=== PATIENT | female | born 1945 | race Caucasian/White ===

== ENCOUNTER 2016-06-17 10:46 | Day surgery (SDC) | payer MEDICARE ==
[2016-06-11 10:35] VITALS: BP 131/73
[~2016-06-17] VITALS: Ht 167.6 cm; Wt 59.0 kg
[~2016-06-17 10:46] MED LIST: BONE PO; BUPIVACAINE/PF-EPI 0.5% 1:200K ONE; CHOL500015 PO; LIDOCAINE/PF 1%-EPI 1:200K, 30ML ONE; MELA3TAB PO; TRAM50TA2 PO; [UNRECOGNIZED DRUG - OTHER] PO; [UNRECOGNIZED DRUG - OTHER] PO
[2016-06-17] MEDS ORDERED: FENTANYL PF 250 MCG/5ML ONE (11:11)
[2016-06-17] MEDS ORDERED: LACTATED RINGERS 1,000 ML IV SCH (11:15)
[2016-06-17] MEDS ORDERED: LIDOCAINE 1%, 2ML SQ PRN (11:30)
[2016-06-17] MEDS ORDERED: ACETAMINOPHEN 325 MG TABLET PO PRN (11:30)
[2016-06-17] MEDS ORDERED: HYDROmorphone 1 MG/ML, 1ML IV PRN (11:30)
[2016-06-17] MEDS ORDERED: ONDANSETRON 2MG/ML, 2ML IVPush PRN (11:30)
[2016-06-17] MEDS ORDERED: PROMETHAZINE 25 MG/ML, 1ML IV PRN (11:30)
[2016-06-17] MEDS ORDERED: HYDROcodone/APAP 7.5-325MG/15ML UDC PO PRN (11:30)
[2016-06-17] MEDS ORDERED: OMNIPAQUE 180 MG/ML, 20ML VIAL ONE (11:30)
[2016-06-17] MEDS ORDERED: FENTANYL PF 100 MCG/2ML IV PRN (11:30)
[2016-06-17] MEDS ORDERED: OXYcodone 5 MG/5 ML ORAL.SOL UDC PO PRN (11:30)
[2016-06-17] MEDS ORDERED: ONDANSETRON 2MG/ML, 2ML ONE (11:34)
[2016-06-17] MEDS ORDERED: ROCURONIUM 10 MG/ML ONE (11:34)
[2016-06-17] MEDS ORDERED: GLYCOPYRROLATE 0.2MG/1ML ONE (11:34)
[2016-06-17] MEDS ORDERED: CEFAZOLIN 1,000 MG ONE (11:34)
[2016-06-17] MEDS ORDERED: NEOSTIGMINE 1 MG/ML, 10ML ONE (11:34)
[2016-06-17] MEDS ORDERED: DEXAMETHASONE 4 MG/ML, 1ML ONE (11:34)
[2016-06-17] MEDS ORDERED: PHENYLEPHRINE 10 MG/ML ONE (11:34)
[2016-06-17] MEDS ORDERED: PROPOFOL 10 MG/ML, 20ML ONE (11:34)
[2016-06-17] MEDS ORDERED: SUCCINYLCHOLINE 20 MG/ML, 10ML ONE (11:34)
[2016-06-17] MEDS ORDERED: OMNIPAQUE 180 MG/ML, 20ML VIAL IT ONE (12:01)
== END 2016-06-17 14:40 | disposition home or self-care (01) ==
LOC: OUT 10:46
PROVIDERS: ATTEND Orthopaedic Surgery Orthopaedic Surgery of the Spine
DX: M80.88XA Other osteoporosis with current pathological fracture, vertebra(e), initial encounter for fracture (principal); M54.5 Low back pain; M40.204 Unspecified kyphosis, thoracic region; Z72.89 Other problems related to lifestyle
CPT/HCPCS: 22513; 72072; 88304; 88311; C1713; J0330; J0690; J1100; J2370; J2405; J2704; J2710; J3010; J3490; J7120; Q9965

== ENCOUNTER 2018-09-14 08:01 | Outpatient (CLI) | payer MEDICARE, MEDICAID ==
[~2018-09-14 08:01] MED LIST changes: -BUPIVACAINE/PF-EPI 0.5% 1:200K ONE; -LIDOCAINE/PF 1%-EPI 1:200K, 30ML ONE; -MELA3TAB PO; +MELA3TAB2 PO
[2018-09-14 09:17] LABS: BASOPHILS # (AUTO) 0.03 x10^3/uL (0-0.1); BASOPHILS % (AUTO) 1 % (0-1); EOSINOPHILS # (AUTO) 0.19 x10^3/uL (0-0.4); EOSINOPHILS % (AUTO) 3 % (1-7); LYMPHOCYTES # (AUTO) 2.52 x10^3/uL (1-3.4); LYMPHOCYTES % (AUTO) 42 % (22-44); MD NO; MEAN CORPUSCULAR HEMOGLOBIN 31.3 pg (27.0-34.8); MEAN CORPUSCULAR HGB CONC 32.6 g/dL (32.4-35.8); MEAN PLATELET VOLUME 7.3 fL (7.4-10.4); MONOCYTES # (AUTO) 0.35 x10^3/uL (0.2-0.8); MONOCYTES % (AUTO) 6 % (2-9); NEUTROPHILS # (AUTO) 2.92 x10^3/uL (1.8-6.8); NEUTROPHILS % (AUTO) 49 % (42-75); PLATELET COUNT 277 x10^3/uL (130-400); RED BLOOD COUNT 4.29 x10^6/uL (3.82-5.3); RED CELL DISTRIBUTION WIDTH 13.3 % (9.6-15.2)
[2018-09-14 09:17] LABS: MICROSCOPIC INDICATED
[2018-09-14 09:23] LABS: CULTURE INDICATED? NO
[2018-09-14 09:23] LABS: INTERNATIONAL NORMALIZED RATIO 0.98 (0.93-1.1); PROTHROMBIN TIME 10.3 Seconds (9.6-11.5)
[2018-09-14 09:27] LABS: ALANINE AMINOTRANSFERASE 38 U/L (12-78); ANION GAP 8 mmol/L (5-15); CHLORIDE 107 mmol/L (98-107)
[2018-09-14 09:29] LABS: ALKALINE PHOSPHATASE 125 U/L (45-117); BILIRUBIN,TOTAL 0.4 mg/dL (0.2-1.0); TOTAL PROTEIN 7.7 g/dL (6.4-8.2)
== END 2018-09-14 23:59 | disposition home or self-care (01) ==
LOC: STAR 08:01
PROVIDERS: ATTEND Orthopaedic Surgery Orthopaedic Surgery of the Spine
DX: Z01.818 Encounter for other preprocedural examination (principal); S32.039A Unspecified fracture of third lumbar vertebra, initial encounter for closed fracture; X58.XXXA Exposure to other specified factors, initial encounter; Y93.89 Activity, other specified; Y92.89 Other specified places as the place of occurrence of the external cause; Y99.8 Other external cause status
CPT/HCPCS: 36415; 71046; 80053; 80074; 81001; 85025; 85610; 85730; 87806; 93005; G0475